=== PATIENT | male | born 1965 | race Asian ===

== ENCOUNTER 2021-06-07 00:26 | Emergency (ER) | payer BC ==
[~2021-06-07] VITALS: Ht 172.7 cm; Wt 68.0 kg
--- NOTE | 2021-06-07 00:49 | NUR ---
DR. GOETZ AT BEDSIDE,MSE IN PROGRESS.
[2021-06-07] MEDS ORDERED: water pill PO (00:51)
--- NOTE | 2021-06-07 01:08 | NUR ---
LAB AT BEDSIDE.
[2021-06-07 01:22] LABS: HEMATOCRIT 44.4 % (36.7-47.1); MEAN CORPUSCULAR HEMOGLOBIN 35.5 uug (23.8-33.4); MEAN CORPUSCULAR VOLUME 105.2 fL (73.0-96.2); PLATELET COUNT (AUTO) 103 K/uL (152-348)
[2021-06-07 01:23] LABS: CREATININE 1.1 mg/dL (0.6-1.3); POTASSIUM 3.9 mmol/L (3.5-5.1)
[2021-06-07 01:29] LABS: BILIRUBIN,TOTAL 2.7 mg/dL (0.2-1.0); TOTAL PROTEIN, SERUM 7.2 g/dL (6.4-8.2)
--- NOTE | 2021-06-07 02:20 | NUR ---
PT TAKEN TO CT.
[2021-06-07] MEDS ORDERED: SWABABLE VALVE TRANSFER SET EA MC ONE (02:35)
[2021-06-07] MEDS ORDERED: IOHEXOL 350 100 ML INFUS..BTL ONE (02:35)
[2021-06-07] MEDS ORDERED: IV NORMAL SALINE 250 ML IV ONE (02:35)
--- NOTE | 2021-06-07 02:55 | NUR ---
PT RETURNED FROM CT.
--- NOTE | 2021-06-07 03:10 | NUR ---
PT AMBULATED TO RESTROOM.
[2021-06-07] MEDS ORDERED: ASPIRIN 325 MG TABLET PO ONE (05:00)
[2021-06-07] MEDS ORDERED: ENOXAPARIN SODIUM 80 MG/0.8 ML DISP.SYRIN SQ ONE ×2 (05:30→05:43)
[2021-06-07] MEDS ORDERED: ASPIRIN 325 MG TABLET ONE (05:43)
--- NOTE | 2021-06-07 05:51 | NUR ---
PT NOTED TO BE AWARE, DENIES ANY PAIN/DISCOMFORT. NOTED TO BE USING HIS CELL PHONE. NO SOB OR LABORED BREATHING.
--- NOTE | 2021-06-07 06:57 | NUR ---
Patient does not wish to proceed with medical care recommended by Brianna Walden. Patient given information related to possible complications, up to and including , which could occur as a result of leaving the hospital at this time. Patient verbalizes understanding of risks involved due to leaving against medical advice. Patient has signed AMA form. Steady gait. No SOB or labored breathing, afebrile. Denies CP/Pressure. IV taken out.
[2021-06-07 07:01] VITALS: BP 120/72
== END 2021-06-07 07:01 | disposition left against medical advice (07) ==
LOC: ER 00:31
DX: I20.0 Unstable angina (principal); R94.31 Abnormal electrocardiogram [ECG] [EKG]; R00.0 Tachycardia, unspecified; R91.8 Other nonspecific abnormal finding of lung field; R06.00 Dyspnea, unspecified; R16.0 Hepatomegaly, not elsewhere classified; R79.1 Abnormal coagulation profile; F17.210 Nicotine dependence, cigarettes, uncomplicated
CPT/HCPCS: 36415; 71045; 71275; 74177; 80048; 80076; 83880; 84484; 85025; 85379; 87426; 93005; 96372; 99285; 99406; J1650; Q9967; 70030-TC; A4663; J7050